=== PATIENT | female | born 1960 | race Caucasian/White ===

== ENCOUNTER → 2018-06-26 | Outpatient (CLI) | payer MEDICARE | LOC: MAMMO 14:12 | DX: Z12.31 Encounter for screening mammogram for malignant neoplasm of breast (principal) ==

== ENCOUNTER → 2020-07-08 | Outpatient (CLI) | payer MEDICARE | LOC: LAB 10:34 | DX: Z01.812 Encounter for preprocedural laboratory examination (principal); Z20.822 Contact with and (suspected) exposure to COVID-19 ==

== ENCOUNTER → 2020-07-13 | Day surgery (SDC) | payer MEDICARE | END | disposition home or self-care (01) | LOC: MSO 08:05 | DX: Z12.11 Encounter for screening for malignant neoplasm of colon (principal); G89.21 Chronic pain due to trauma; F17.210 Nicotine dependence, cigarettes, uncomplicated; Z79.899 Other long term (current) drug therapy; Z96.82 Presence of neurostimulator; Z82.3 Family history of stroke; Z80.49 Family history of malignant neoplasm of other genital organs; Z80.8 Family history of malignant neoplasm of other organs or systems | CPT/HCPCS: 00812; J2704; J7120 ==

== ENCOUNTER → 2022-07-07 | Outpatient (CLI) | payer MEDICARE | LOC: MAMMO 09:49 | DX: Z12.31 Encounter for screening mammogram for malignant neoplasm of breast (principal) ==

== ENCOUNTER → 2023-07-26 | Outpatient (CLI) | payer MEDICARE, OTHER ==
[~2023-07-26] MED LIST: CYCLOBENZ5 MG
== END ==
LOC: MAMMO 13:46
DX: Z12.31 Encounter for screening mammogram for malignant neoplasm of breast (principal)

== ENCOUNTER 2024-08-15 12:46 | Emergency (ER) | payer MEDICARE, OTHER ==
[~2024-08-15] VITALS: Ht 180.3 cm; Wt 79.1 kg
[2024-08-15] MEDS ORDERED: ATORVASTATIN CA80 MG PO (12:56)
[2024-08-15] MEDS ORDERED: LEVETIRACETAM750 MG PO (12:56)
[2024-08-15] MEDS ORDERED: LEVETIRACETAM500 M2 PO (12:57)
[2024-08-15] MEDS ORDERED: NORCO 325 MG-7.1 TA1 PO (13:07)
[2024-08-15] MEDS ORDERED: Ketorolac 30 MG/ML VIAL IM ONE (13:30)
[2024-08-15 14:22] VITALS: BP 111/83
== END 2024-08-15 14:22 | disposition home or self-care (01) ==
LOC: ED 12:46
DX: M16.12 Unilateral primary osteoarthritis, left hip (principal); F17.210 Nicotine dependence, cigarettes, uncomplicated; Z86.73 Personal history of transient ischemic attack (TIA), and cerebral infarction without residual deficits; Z95.5 Presence of coronary angioplasty implant and graft
CPT/HCPCS: J1885